=== PATIENT | female | born 1990 | race Caucasian/White ===

== ENCOUNTER 2016-09-23 11:31 | Day surgery (SDC) | payer OTHER ==
[~2016-09-23] VITALS: Ht 149.9 cm; Wt 87.3 kg
[~2016-09-23 11:31] MED LIST: FERR27TA PO; PREN-39
[2016-09-23 12:16] VITALS: Ht 149.9 cm; Wt 87.3 kg
[2016-09-23] MEDS ORDERED: no meds. (12:17)
[2016-09-23 12:33] VITALS: BP 112/60; PULSE 67; RESP 18
[2016-09-23] MEDS ORDERED: MIDAZOLAM 1 MG/ML 2 ML INJ ONE ×3 (13:12)
[2016-09-23] MEDS ORDERED: FENTAnyl 50 MCG/ML VIAL ONE (13:12)
[2016-09-23 13:35] VITALS: BP 109/64; PULSE 88; RESP 18
--- NOTE | 2016-09-23 14:32 | GILP ---
DATE OF PROCEDURE: NAME OF PROCEDURE: Colonoscopy. SURGEON: Noé Bergman MD PREOPERATIVE DIAGNOSIS: Screening colonoscopy. POSTOPERATIVE DIAGNOSES 1. Colonoscopy all the way to the cecum. 2. No colon neoplasm was identified. INDICATION FOR THE PROCEDURE: Ms. Pamela Turner is a 25-year-old female patient who had strong family history of colon cancer. Her father had colon cancer at the age of 30, so the patient was scheduled for screening colonoscopy. The procedure and possible complications are well explained to the patient, she understood and conse nted to the procedure. DESCRIPTION OF PROCEDURE: Under the influence of fentanyl and Versed, the colonoscope was carefully introduced in the rectum and under direct vision, it was advanced all the way to the cecum. FINDINGS: The patient had normal colonoscopic exam. No colon neoplasm was identified. She tolerated the procedure very well and there was no complication from the procedure. At the end of the procedures, she was awake with stable vital signs and she was discharged home to the care of her family. IMPRESSION: 1. Colonoscopy all the way to the cecum. 2. No colon neoplasm was identified. PLAN: Next screening colonoscopy in 10 years. Dictated By: NOÉ DEL TORO/KOKI Conf#: [id number] DID#: [id number]
== END 2016-09-23 14:42 | disposition home or self-care (01) ==
LOC: GIL 11:31
PROVIDERS: ATTEND Internal Medicine Gastroenterology
DX: Z12.11 Encounter for screening for malignant neoplasm of colon (principal)
CPT/HCPCS: 45378; J2250; J3010; Z7610